=== PATIENT | male | born 1995 | race Caucasian/White ===

== ENCOUNTER 2018-04-24 16:53 | Emergency (ER) | payer OTHER ==
[~2018-04-24] VITALS: Ht 190.5 cm; Wt 86.2 kg
[~2018-04-24 16:53] MED LIST: MOTRIN600 MG PO; NAPROSYN500 MG PO; NKHM; ZYRTEC10 MG PO
[2018-04-24 16:54] VITALS: BP 123/72
[2018-04-24 17:23] LABS: BILIRUBIN NEGATIVE (NEGATIVE); BLOOD NEGATIVE (NEGATIVE); CLARITY CLEAR (CLEAR); COLOR YELLOW (YELLOW); GLUCOSE NEGATIVE (NEGATIVE); KETONE TRACE (NEGATIVE); LEUKO ESTERASE NEGATIVE (NEGATIVE); NITRITE NEGATIVE (NEGATIVE)
[2018-04-24 17:29] LABS: BACTERIA TRACE; EPITHELIAL CELLS 0-2; MUCOUS 1+; WBC 0-2 wbc/hpf (0-5)
[2018-04-24 17:35] LABS: BASO % 0.5 % (0.0-1.0); EOS # 0.1 10*3/uL (0.0-0.4); EOS % 2.1 % (1.0-4.0); HEMATOCRIT 47.4 % (42.0-52.0); HEMOGLOBIN 16.5 g/dl (14.0-18.0); LYMPH # 2.2 10*3/uL (1.3-4.4); MEAN CELL VOLUME 89.9 fl (80.0-94.0); MEAN CORPUSCULAR HGB 31.3 pg (27.0-31.0); MEAN CORPUSCULAR HGB CONC 34.8 g/dl (33.0-37.0); MEAN PLATELET VOLUME 10.5 fl (9.6-12.3); MONO # 0.4 10*3/uL (0.1-1.0); MONO % 6.5 % (3.0-9.0); NEUT # 3.8 10*3/uL (2.3-7.9); NEUT % 57.6 % (47.0-73.0); PLATELET COUNT AUTOMATED 188 10*3/uL (130-400); RED BLOOD COUNT 5.27 10*6/uL (4.50-5.90); RED CELL DISTRI WIDTH 11.9 % (0-14.5); WHITE BLOOD COUNT 6.6 10*3/uL (4.8-10.8)
[2018-04-24 17:51] LABS: ALBUMIN 4.5 gm/dl (3.1-4.5); ALKALINE PHOSPHATASE 59 U/L (45-117); BUN 11 mg/dl (7-24); CHLORIDE 105 mmol/L (98-107); CREATININE 1.08 mg/dL (0.70-1.30); LIPASE 101 U/L (73-393); POTASSIUM 3.9 mmol/L (3.5-5.1); SGOT/AST 12 IU/L (3-35); SGPT/ALT 20 U/L (12-78); SODIUM 141 mmol/L (136-145); TOTAL PROTEIN 7.7 gm/dL (6.4-8.2)
[2018-04-24] MEDS ORDERED: PROTONIX40 MG PO (19:06)
== END 2018-04-24 19:06 | disposition home or self-care (01) ==
LOC: ED 16:53
PROVIDERS: Nurse Practitioner Family
DX: R10.12 Left upper quadrant pain (principal)

== ENCOUNTER 2018-07-17 09:56 | Emergency (ER) | payer OTHER ==
[~2018-07-17] VITALS: Ht 190.5 cm; Wt 81.6 kg
[~2018-07-17 09:56] MED LIST changes: +PROTONIX40 MG PO
[2018-07-17 09:57] VITALS: BP 113/67
[2018-07-17] MEDS ORDERED: Tobrex Ophth S2.5 ML OPH (09:59)
== END 2018-07-17 10:15 | disposition home or self-care (01) ==
LOC: ED 09:56
DX: H10.31 Unspecified acute conjunctivitis, right eye (principal); Z79.899 Other long term (current) drug therapy

== ENCOUNTER 2019-09-15 20:47 | Emergency (ER) | payer OTHER ==
[~2019-09-15] VITALS: Ht 193 cm; Wt 90.7 kg
[~2019-09-15 20:47] MED LIST changes: +AMOXICILLIN500 M2 PO; +FLONASE ALLERG9.9 ML NAS; +TESSALON PERLE100 M1 PO; +Tobrex Ophth S2.5 ML OPH
[2019-09-15 20:49] VITALS: BP 130/65
[2019-09-15] MEDS ORDERED: CLARITIN10 MG PO (22:00)
[2019-09-15] MEDS ORDERED: AUGMENTIN 875875 MG PO (22:00)
[2019-09-15] MEDS ORDERED: TESSALON PERLE100 M1 PO (22:00)
== END 2019-09-15 22:10 | disposition home or self-care (01) ==
LOC: ED 20:47
DX: J32.9 Chronic sinusitis, unspecified (principal); Z79.899 Other long term (current) drug therapy

== ENCOUNTER 2019-10-07 19:36 | Emergency (ER) | payer OTHER ==
[~2019-10-07] VITALS: Ht 193 cm; Wt 89.4 kg
[~2019-10-07 19:36] MED LIST changes: +AUGMENTIN 875875 MG PO; +CLARITIN10 MG PO
[2019-10-07 19:40] VITALS: BP 119/70
[2019-10-07] MEDS ORDERED: ZITHROMAX250 MG PO (21:21)
[2019-10-07] MEDS ORDERED: TESSALON PERLE100 M1 PO (21:21)
== END 2019-10-07 21:49 | disposition home or self-care (01) ==
LOC: ED 19:36
DX: J32.9 Chronic sinusitis, unspecified (principal); J40 Bronchitis, not specified as acute or chronic; R19.7 Diarrhea, unspecified; Z79.899 Other long term (current) drug therapy

== ENCOUNTER 2019-12-08 16:07 | Emergency (ER) | payer OTHER ==
[~2019-12-08] VITALS: Ht 190.5 cm
[~2019-12-08 16:07] MED LIST changes: +ZITHROMAX250 MG PO
[2019-12-08 16:18] VITALS: BP 124/96
[2019-12-08] MEDS ORDERED: ZOFRAN4 MG PO (17:34)
== END 2019-12-08 17:51 | disposition home or self-care (01) ==
LOC: ED 16:07
DX: R11.2 Nausea with vomiting, unspecified (principal)

== ENCOUNTER 2021-04-19 19:56 | Emergency (ER) | payer OTHER ==
[~2021-04-19] VITALS: Ht 193 cm; Wt 77.6 kg
[~2021-04-19 19:56] MED LIST changes: +ZOFRAN4 MG PO
[2021-04-19 20:19] VITALS: BP 126/67
== END 2021-04-19 21:51 | disposition home or self-care (01) ==
LOC: ED 19:56
DX: J06.9 Acute upper respiratory infection, unspecified (principal); Z20.822 Contact with and (suspected) exposure to COVID-19; F17.200 Nicotine dependence, unspecified, uncomplicated; Z79.899 Other long term (current) drug therapy; Z79.2 Long term (current) use of antibiotics

== ENCOUNTER 2022-10-14 12:50 | Emergency (ER) | payer OTHER ==
[~2022-10-14] VITALS: Ht 193 cm; Wt 68.0 kg
[2022-10-14 13:07] VITALS: BP 111/65
[2022-10-14] MEDS ORDERED: MEDROL DOSEPAK4 MG PO (15:27)
[2022-10-14] MEDS ORDERED: CEPHALEXIN500 M1 PO (15:27)
== END 2022-10-14 15:31 | disposition home or self-care (01) ==
LOC: ED 12:50
DX: H60.11 Cellulitis of right external ear (principal)